=== PATIENT | female | born 1950 | race Asian ===

== ENCOUNTER 2018-03-14 19:36 | Emergency (ER) | payer MEDICARE, OTHER ==
--- NOTE | 2018-03-14 20:23 | RAD ---
THREE VIEW RIGHT FOOT: 03/14/18 INDICATION: New onset pain. FINDINGS: There is a generalized soft tissue prominence of the right foot. Minute osseous density projects at t he lateral aspect of the fifth toe proximal phalanx, distally, which is age indeterminate on the basi s of this exam. There is enthesophyte formation at the calcaneus greatest at the dorsal aspect with c hronic appearing fragmentation. Correlate clinically. Lisfranc joint is intact. IMPRESSION: 1. There is a minute density adjacent the lateral aspect of the distal portion fifth toe proxima l phalanx, age indeterminate. Correlate with physical exam to exclude acute pain in this region. 2. Generalized mild soft tissue prominence of the right foot. POS: [facility]
[2018-03-14] MEDS ORDERED: HYDROcodone/Acetaminophen 10/325 mg Tablet ONE (20:42)
== END 2018-03-14 20:51 | disposition home or self-care (01) ==
LOC: ERS 19:36
DX: S90.31XA Contusion of right foot, initial encounter (principal); X50.1XXA Overexertion from prolonged static or awkward postures, initial encounter

== ENCOUNTER 2018-03-20 20:07 | Emergency (ER) | payer MEDICARE, OTHER ==
--- NOTE | 2018-03-20 21:53 | RAD ---
RIGHT FOOT RADIOGRAPH THREE VIEWS 03/20/18 PROVIDED CLINICAL HISTORY: Right foot pain status post injury. FINDINGS: Comparison 03/14/18. There is no evidence for fracture or other acute osseous abnormality. Alignment appears anatomic. Liza nt spaces appear preserved. Plantar calcaneal enthesophyte formation is noted. IMPRESSION: No evidence for an acute osseous abnormality. POS: [facility]
[2018-03-20 22:44] LABS: ALT (SGPT) 64 U/L (8-55); AST (SGOT) 34 U/L (5-34); Albumin 3.2 g/dL (3.4-4.8); Alkaline Phosphatase 241 U/L (40-150); Anion Gap 14 mmol/L (10-20); BUN (Urea Nitrogen) 9 mg/dL (9.8-20.1); Band 7 % (5-11); Bilirubin, Total 0.4 mg/dL (0.2-1.2); Calc. Creatinine Clearance 0 mL/min (70-130); Calcium 10.1 mg/dL (7.8-10.44); Carbon Dioxide 24 mmol/L (23-31); Chloride 100 mmol/L (98-107); Eosinophils 2 % (0-10); Estimated GFR-MDRD 74; Globulin 6.6 g/dL (2.4-3.5); Glucose 121 mg/dL (80-115); Hemoglobin 11.5 g/dL (12.0-16.0); Lymphocytes 28 % (21-51); MDiff Complete? YES; Mean Corpuscular HGB CONC 32.3 g/dL (32.0-36.0); Mean Corpuscular Hemoglobin 30.9 pg (27.0-31.0); Mean Corpuscular Volume 95.7 fL (78.0-98.0); Metamyelocyte 1 % (0-0); Monocytes 6 % (0-10); Neutrophil 56 % (42-75); PLT Morphology Comment Appears Increased; Platelet Count 545 thou/uL (130-400); Potassium 4.4 mmol/L (3.5-5.1); Protein, Total 9.8 g/dL (6.0-8.3); RBC Distribution Width 12.7 % (11.5-14.5); Red Blood Cell (RBC) Count 3.71 mill/uL (4.20-5.40); Sodium 134 mmol/L (136-145); White Blood Cell (WBC) Count 8.5 thou/uL (4.8-10.8)
--- NOTE | 2018-03-20 23:05 | RAD ---
PORTABLE CHEST 03/20/18 PROVIDED CLINICAL HISTORY: Cough. FINDINGS: The cardiac silhouette appears enlarged. Air space disease right mid lung zone compatible with pneumo kait. Lungs appear otherwise clear. No pleural fluid or pneumothorax apparent. IMPRESSION: Findings compatible with pneumonia involving the right mid lung zone. Followup after treatment is rec ommended to document resolution. POS: [facility]
--- NOTE | 2018-03-20 23:47 | CT ---
CT PULMONARY ANGIOGRAM WITH IV CONTRAST AND 3D MIP RECONSTRUCTION 03/20/18 PROVIDED CLINICAL HISTORY: Cough and chills. FINDINGS: Comparison chest radiograph performed earlier same date. As demonstrated on that radiograph, there is consolidation within the right upper lobe compatible wit h pneumonia. The lungs appear otherwise clear. There is no pleural fluid or pneumothorax apparent. Va scular calcifications including coronary calcium is seen. There is no evidence for central or segment al pulmonary embolus. No evidence for thoracic lymph node enlargement. The visualized portions of the upper abdomen demonstrate no acute process. The osseous structures demonstrate no concerning lytic o r blastic lesions. IMPRESSION: Right upper lobe pneumonia. POS: [facility]
--- NOTE | 2018-03-21 08:57 | ULT ---
PRELIMINARY REPORT/[facility]/EMERGENTY AFTER-HOURS PROCEDURE US Right Duplex Lower Extremity Veins, Limited EXAM DATE/TIME: 03/21/2018 12:11 AM CLINICAL HISTORY: 68 years old, female; Pain; Leg, upper; Right; Patient HX: Rle pain x 8 days TECHNIQUE: Real-time Duplex ultrasound of the Right Lower Extremity with 2-D car scale, color Doppler flow and spectral waveform analysis. Limited exam was focused on the right lower extremity veins. COMPARISON: No relevant prior studies available. FINDINGS: Right deep veins: Unremarkable. The common femoral, femoral and popliteal veins are patent without th rombus. Normal compressibility, augmentation response and Doppler waveforms. Right superficial veins: Unremarkable. Saphenofemoral junction is patent without thrombus. Soft tissues: Unremarkable. IMPRESSION: No acute findings. No evidence of deep vein thrombosis. Thank you for allowing us to participate in the care of your patient. Dictated and Authenticated by: Andre Laws MD 03/21/2018 12:35 AM Central Time ([place] & [place]) FINAL REPORT RIGHT LOWER EXTREMITY VENOUS DOPPLER ULTRASOUND: DATE: 03/21/2018. COMPARISON: None. HISTORY: Pain, assess for DVT. FINDINGS: Venous structures of right lower extremity obtained with color flow and spectral analysis. Common fe moral vein, greater saphenous vein, profunda femoral vein, femoral vein, popliteal vein, and posterio r tibial vein are patent. Normal blood flow, augmentation, and compression noted within the deep teresita ous system on the right. No evidence for DVT. IMPRESSION: No evidence for deep venous thrombosis of the right lower extremity. POS: [facility]
--- NOTE | 2018-03-22 22:14 | EKG ---
Test Reason : Blood Pressure : / mmHG Vent. Rate : 082 BPM Atrial Rate : 082 BPM P-R Int : 182 ms QRS Dur : 092 ms QT Int : 362 ms P-R-T Axes : 053 066 041 degrees QTc Int : 422 ms Normal sinus rhythm Possible Left atrial enlargement Confirmed by ROBINSON FABIAN DO ([id number]), editor map MALINDA INFANTE ([id number]) on 03/22/2018 10:13:46 PM Referred By: Confirmed By:ROBINSON FABIAN DO
== END 2018-03-21 01:32 | disposition home or self-care (01) ==
LOC: ERS 20:07
DX: J18.9 Pneumonia, unspecified organism (principal); M25.571 Pain in right ankle and joints of right foot; I10 Essential (primary) hypertension; E05.90 Thyrotoxicosis, unspecified without thyrotoxic crisis or storm; E03.9 Hypothyroidism, unspecified; Z79.899 Other long term (current) drug therapy; W23.0XXA Caught, crushed, jammed, or pinched between moving objects, initial encounter
CPT/HCPCS: 36415; 71045; 71275; 80053; 84443; 84484; 85025; 93005

== ENCOUNTER 2018-03-31 15:30 | Outpatient (CLI) | payer MEDICARE, OTHER ==
--- NOTE | 2018-03-31 18:04 | RAD ---
CHEST PA AND LATERAL: HISTORY: Pneumonia. Followup. COMPARISON: 03/20/2018 FINDINGS: The heart size is normal. The lungs are well expanded with patchy air space disease in the right mid lung. Mild residual density is likely due to scarring. No pneumothoraces or pleural effusions are seen. IMPRESSION: Near complete resolution of right-sided pneumonia since 03/20/2018. POS: [facility]
--- NOTE | 2018-03-31 18:05 | RAD ---
RIGHT FOOT RADIOGRAPHS THREE VIEWS: 03/31/2018 PROVIDED CLINICAL HISTORY: Right foot pain without injury. COMPARISON: 03/20/2018 FINDINGS: There is no evidence for fracture or other acute osseous abnormality. Alignment appears anatomic. J oint spaces appear preserved. Conspicuous plantar and posterior calcaneal enthesophyte formation. IMPRESSION: No evidence for an acute osseous abnormality. POS: [facility]
== END 2018-03-31 15:31 | disposition home or self-care (01) ==
LOC: BICRAD 15:30
PROVIDERS: ATTEND Family Medicine
DX: J18.9 Pneumonia, unspecified organism (principal); M79.671 Pain in right foot
CPT/HCPCS: 71046

== ENCOUNTER 2018-06-26 08:01 | Outpatient (CLI) | payer MEDICARE, OTHER ==
--- NOTE | 2018-07-21 15:27 | MMO ---
Bilateral MAMMO Bilat Screen [facility]. CLINICAL HISTORY: Patient is 68 years old and is seen for screening. The patient has no family history of breast cancer. The patient has no personal history of cancer. VIEWS: The views performed were: bilateral craniocaudal with tomosynthesis and bilateral mediolateral oblique with tomosynthesis. MAMMOGRAM FINDINGS: There are scattered fibroglandular densities. There are vascular calcifications seen in both breasts. There are no suspicious masses, suspicious calcifications, or new areas of architectural distortion. IMPRESSION: A ROUTINE FOLLOW-UP MAMMOGRAM IN 1 YEAR IS RECOMMENDED. THE RESULTS OF THIS EXAM WERE SENT TO THE PATIENT. ACR BI-RADS Category 2 - Benign finding MAMMOGRAPHY NOTE: 1. A negative mammogram report should not delay a biopsy if a dominant of clinically suspicious mass is present. 2. Approximately 10% to 15% of breast cancers are not detected by mammography. 3. Adenosis and dense breasts may obscure an underlying neoplasm.
== END 2018-06-26 08:02 | disposition home or self-care (01) ==
LOC: BICMAMMO 08:01
PROVIDERS: ATTEND Family Medicine
DX: Z12.31 Encounter for screening mammogram for malignant neoplasm of breast (principal)
CPT/HCPCS: 77063; 77067

== ENCOUNTER 2018-07-07 14:14 | Outpatient (CLI) | payer MEDICARE, OTHER ==
--- NOTE | 2018-07-07 16:21 | BD ---
BONE DENSITOMETRY: Indication: 68-year-old female for post menopausal osteoporosis screening. Lumbar Spine: BMD (g/cm2) L1 0.822 T-Score: -1.5 L2 0.776 T-Score: -2.3 L3 0.772 T-Score: -2.8 L4 0.785 T-Score: -2.5 L1-L4 0.788 T-Score: -2.4 Femoral Neck: 0.629 T-Score: -2.0 Total Femur: 0.815 T-Score: -1.0 Impression: Bone mineral density of lumbar spine and femoral neck both indicate osteopenia. 10-year fracture risk: 1. Major osteoporotic fracture: 11% 2. Hip fracture: 1.6% POS: [facility]
== END 2018-07-07 14:15 | disposition home or self-care (01) ==
LOC: BICMAMMO 14:14
PROVIDERS: ATTEND Family Medicine
DX: Z13.820 Encounter for screening for osteoporosis (principal); M85.89 Other specified disorders of bone density and structure, multiple sites
CPT/HCPCS: 77080

== ENCOUNTER 2019-09-21 11:30 | Outpatient (CLI) | payer MEDICARE, OTHER ==
--- NOTE | 2019-09-21 13:44 | MMO ---
Bilateral MAMMO Bilat Screen [facility]. CLINICAL HISTORY: Patient is 69 years old and is seen for screening. The patient has no family history of breast cancer. The patient has no personal history of cancer. VIEWS: The views performed were: bilateral craniocaudal with tomosynthesis and bilateral mediolateral oblique with tomosynthesis. FILMS COMPARED: The present examination has been compared to prior imaging studies performed at [facility] on 04/28/2012, and at [facility] on 06/26/2018. This study has been interpreted with the assistance of computer-aided detection. MAMMOGRAM FINDINGS: There are scattered fibroglandular densities. There are no suspicious masses, suspicious calcifications, or new areas of architectural distortion. IMPRESSION: THERE IS NO MAMMOGRAPHIC EVIDENCE OF MALIGNANCY. A ROUTINE FOLLOW-UP MAMMOGRAM IN 1 YEAR IS RECOMMENDED. THE RESULTS OF THIS EXAM WERE SENT TO THE PATIENT. ACR BI-RADS Category 1 - Negative MAMMOGRAPHY NOTE: 1. A negative mammogram report should not delay a biopsy if a dominant of clinically suspicious mass is present. 2. Approximately 10% to 15% of breast cancers are not detected by mammography. 3. Adenosis and dense breasts may obscure an underlying neoplasm. Reported by: ERENDIRA RODRIGUEZ MD Electonically Signed: [id number]
== END 2019-09-21 11:31 | disposition home or self-care (01) ==
LOC: BICMAMMO 11:30
PROVIDERS: ATTEND Nurse Practitioner Family
DX: Z12.31 Encounter for screening mammogram for malignant neoplasm of breast (principal)
CPT/HCPCS: 77063; 77067